=== PATIENT | male | born 1940 | race Caucasian/White ===

== ENCOUNTER 2017-11-10 08:08 | Inpatient (IN) | payer OTHER, BC ==
[2017-10-13 12:44] VITALS: BMI 29.0
--- NOTE | 2017-10-13 13:24 | PAT Medication Instructions ---
Service Date Oct 13, 2017. Current Home Medication List Aspirin (Aspirin Ec), 81 MG PO QPM Coenzyme Q10 (Ubidecarenone) (Coq10), 100 MG PO QPM Hzdoeozhvxl-Cfvabkayupm-Pzd C- (Glucosamine Chondroitin), 1 TAB PO QPM Krill Oil (Krill Oil), 1 TAB PO QPM Lisinopril (Zestril), 10 MG PO QPM Simvastatin (Zocor), 80 MG PO QPM Tamsulosin Hcl (Flomax), 0.4 MG PO QPM Vitamins C & E (Vitamin C), 2 TAB PO QAM Medication Instructions For Your Scheduled Surgery - Hold the following medications 2 weeks prior to surgery: Coenzyme Q10 (Ubidecarenone) (Coq10), 100 MG PO QPM Tuuqctxkdfi-Wkladsleltq-Tvz C- (Glucosamine Chondroitin), 1 TAB PO QPM Krill Oil (Krill Oil), 1 TAB PO QPM - Hold the following medications the night before surgery: Lisinopril (Zestril), 10 MG PO QPM - Hold the following medications the morning of surgery: Vitamins C & E (Vitamin C), 2 TAB PO QAM - Take the following medications as scheduled the night before surgery: Simvastatin (Zocor), 80 MG PO QPM Tamsulosin Hcl (Flomax), 0.4 MG PO QPM Aspirin (Aspirin Ec), 81 MG PO QPM If you have any questions please call us at [phone] or [phone] or [phone]
[2017-10-13 14:15] LABS: BASO % 0.6 %; BASO ABS # 0.03 K/uL (0-0.2); EOS % 3.3 %; EOS ABS # 0.17 K/uL (0-0.5); HEMATOCRIT 40.6 % (42-52); HEMOGLOBIN 14.1 g/dL (14.0-18.0); IG# 0.01 K/uL (0.00-0.02); LYMPH ABS # 1.96 K/uL (1.2-3.4); MEAN CELL VOLUME 93.8 fL (80-100); MEAN CORPUSCULAR HEMOGLOBIN 32.6 pg (25-34); MEAN CORPUSCULAR HGB CONC 34.7 g/dl (32-36); MEAN PLATELET VOLUME 9.8 fL (7.4-10.4); MONO % 10.5 %; MONO ABS # 0.54 K/uL (0.11-0.59); NEUT % 47.4 %; NEUT ABS # 2.45 K/uL (1.4-6.5); PLATELET COUNT 242 K/uL (130-400); RED CELL DISTRIBUTION WIDTH CV 12.5 % (11.5-14.5); WHITE BLOOD COUNT 5.16 K/uL (4.8-10.8)
--- NOTE | 2017-10-13 14:26 | DIAGNOSTIC IMAGING REPORT ---
TWO VIEW CHEST CLINICAL HISTORY: Preoperative examination. FINDINGS: PA and lateral chest radiographs are obtained. No prior studies are available for comparison at the time of dictation. The heart is mildly enlarged. The pulmonary vasculature is noncongested. There is a moderate hiatal hernia. The lungs and pleural spaces are clear. There is no pneumothorax. The skeletal structures are osteopenic. The bony thorax appears intact. IMPRESSION: 1. Mild cardiac enlargement with no active disease in the chest. 2. Hiatal hernia. Electronically signed by: Washignton Abebe M.D. 10/13/2017 2:25 PM Dictated Date/Time: 10/13/2017 2:24 PM
[2017-10-13 14:41] LABS: PTT PATIENT 25.7 SECONDS (21.0-31.0)
--- NOTE | 2017-10-15 10:27 | HISTORY & PHYSICAL EXAMINATION ---
DATE OF ADMISSION: 11/10/2017 CHIEF COMPLAINT: Left knee pain. HISTORY OF PRESENT ILLNESS: Leighton is a 76-year-old male with a multiple year history of left knee pain. The patient rates his pain in 8-9/10. He has pain with his daily activities. He has limited standing and walking tolerance. Pain is worse with weightbearing. The patient has had injections, knee arthroscopy and bracing in the past with minimal relief. He has failed conservative treatment and is now scheduled for left knee replacement. PAST MEDICAL HISTORY: Diet controlled diabetes with an A1c of 6.2. He denies heart disease or DVT. PAST SURGICAL HISTORY: ORIF left ankle, bilateral knee arthroscopy, hiatal hernia repair, left rotator cuff repair, left fourth finger amputation and dental implants. SOCIAL HISTORY: The patient denies tobacco use. He drinks alcohol socially. He does lives in a 2-story home but is functional at one level. He is and retired. FAMILY HISTORY: Negative for DVT. MEDICATIONS: Simvastatin 20 mg, lisinopril, tamsulosin 0.4 mg, CoQ10, Krill oil, glucosamine chondroitin and aspirin 81 mg. ALLERGIES: None. REVIEW OF SYSTEMS: See HPI. Ten other systems reviewed, all negative. PHYSICAL EXAMINATION: VITAL SIGNS: Height 5 foot 11 inches, weight 209 pounds, BMI is 29. GENERAL: This is a well-developed, well-nourished male who is alert and oriented x3. Mood and affect are appropriate. HEENT: Normocephalic, atraumatic. Mucous membranes are moist and intact. NECK: Supple without lymphadenopathy. HEART: Regular rate and rhythm without murmurs, rubs or gallops. LUNGS: Clear to auscultation without wheezes or rhonchi. ABDOMEN: Soft and nontender. Bowel sounds are equal and active. EXTREMITIES: No ecchymosis, redness or warmth. He has neutral alignment. Range of motion is from 0-115 degrees. He has no laxity. He is neurovascularly intact. He has minimal effusion. He has no distal edema. X-RAY EXAMINATION: AP and lateral views showed joint space narrowing and osteophyte formation. IMPRESSION: Degenerative joint disease, left knee. PLAN: The patient will be admitted for a left total knee arthroplasty. We will plan on aspirin for DVT prophylaxis. The patient is going to do outpatient PT upon discharge. His PCP is Dr. Condon of [facility].
[~2017-11-10] VITALS: Ht 180.3 cm; Wt 95.0 kg
[2017-11-10] VITALS (10 sets, daily range): BP systolic 113–164; BP diastolic 63–84; PULSE 48–61; TEMP 36.3–36.5; O2SAT 95–98; Ht 180.3 cm; Wt 95.0 kg
[~2017-11-10 08:08] MED LIST: ACETAMINOPHEN 500 MG TAB PO SCH; ASPI81TA28 PO; ATROPINE SULFATE 0.1 MG/ML 5ML SYR IV PRN; BUPIVACAINE 0.25% 30 ML VIAL ONE; BUPIVACAINE 0.5 % 5 MG/1 ML PF 10ML VIAL ONE; CEFAZOLIN 2000MG IV PUSH 10 ML IV SCH; COEN100C7 PO; CeleBREX 200 MG CAP PO SCH; DEXAMETHASONE 4 MG TAB PO SCH; EpHEDrine SULFATE INJ 50 MG/ML AMP IV PRN; FAMOTIDINE 20 MG TAB PO SCH; GABAPENTIN 300 MG CAP PO SCH; GLUCTAB7 PO; KRIL1000 PO; LACTATED RINGER'S 1000ML 1,000 ML IV SCH; LACTATED RINGER'S 1000ML 500 ML IV SCH; LISI-461 PO; METOCLOPRAMIDE HCL 10 MG TAB PO SCH; ONDANSETRON INJ 2 MG/ML 2 ML VIAL IV PRN; ROPIVACAINE 5MG/ML 30 ML 150 MG, BUPIVACAINE 0.5% MPF INJ 30 ML, EpINEphrine HCL INJ 0.... INFIL SCH; SIMV80TA2 PO; TAMS0.4C38 PO; VITACAP26 PO
--- NOTE | 2017-11-10 08:24 | History & Physical Bridge Note ---
H&P Re-Evaluation Bridge Note: I have examined the patient, reviewed the History & Physical and in the interval since the performance of the History & Physical I have noted the following changes of clinical significance: No changes noted
[2017-11-10] MEDS ORDERED: EpHEDrine SULFATE 50MG/5ML SYR ONE (09:00)
[2017-11-10] MEDS ORDERED: MIDAZOLAM HCL 1 MG/ML 2ML VIAL ONE (09:00)
[2017-11-10] MEDS ORDERED: FENTANYL CITRATE INJ 50 MCG/1 ML 2 ML VIAL ONE (09:00)
[2017-11-10] MEDS ORDERED: LIDOCAINE HCL 2% 2 ML VIAL (20MG/ML) ONE (09:00)
[2017-11-10] MEDS ORDERED: PHENYLEPHRINE 100MCG/ML 5ML SYR ONE (09:00)
[2017-11-10] MEDS ORDERED: PROPOFOL IV EMULSION 10 MG/ML 20 ML VIAL IV ONE ×2 (09:00→10:01)
[2017-11-10] MEDS ORDERED: BACITRACIN 50000 UNIT VIAL ONE (09:51)
[2017-11-10] MEDS ORDERED: POVIDONE-IODINE OP SOLN 30 ML BTL ONE (09:51)
[2017-11-10] MEDS: TRANEXAMIC ACID INJ 1,000 MG in SYRINGE 0 ML IV SCH ×2 (10:55→17:17)
--- NOTE | 2017-11-10 12:06 | [facility] Operative Report ---
Operative Report Operative Date Nov 10, 2017. Pre-Operative Diagnosis Left Knee Degenerative Joint Disease Post-Operative Diagnosis Left Knee Degenerative Joint Disease Procedure(s) Performed Left Total Knee Arthroplasty utilizing Alford & Nephew patient-matched left total knee arthroplasty size 7 femur 7 tibia [address] Shiloh [address] [facility] Worker Surgeon(s) ANGE Delvalle Estimated Blood Loss 5 ML Findings Patient presents with severe end-stage Tri-Chlor metal degenerative joint disease left knee after failing attempts at conservative management the patient presents for left total knee arthroplasty failing a viscus of cortical steroid injections anti-inflammatories relative rest x-rays reveal evidence of osteophyte subchondral sclerosis [id number] changes marginal osteophytes Specimens A. Left Knee Bone and Tissue Complication(s) None Disposition Surgical ICU Indications Patient presents with severe end-stage tricompartmental degenerative joint disease Nourse wants to conservative therapy including injections therapy activity modification excision subchondral sclerosis osteophytes varus alignment [id number] changes Description of Procedure After proper prepping and draping of the left lower extremity anterior midline incision was made over the region of the extensor extensor mechanism after meticulous hemostasis was obtained and maintained in subcutaneous tissues a medial parapatellar incision was made The patella was subluxed lateralward the medial lateral gutter were cleaned from any hypertrophic synovitis and scar tissue of the distal femoral block was placed and the distal femoral osteotomy cut was made subsequently the chamfers anterior and posterior osteotomy cuts were made utilizing the 4-in-1 block the tibia was subsequently subluxed anteriorward medial and ateral meniscal remnants were excised in their entirety remnants of the anterior and posterior cruciate ligaments were excised in their entirety excellent exposure of the proximal tibia was obtained the tibial osteotomy guide was placed on the proximal tibial osteotomy cut was made once again the knee was irrigated with copious amounts of sterile saline solution the patella was subsequently everted lateralward thickened scar tissue around the patella was removed the patella was subsequently cut utilizing a freehand technique and was drilled prepared for final preparation and placement of patella socially flexion-extension gaps were checked and the equal and symmetric trials were placed to the appropriate femoral and tibial trials with poly-spacer being placed for equal flexion and extension gaps and full range of motion including extension to 0 and flexion to 140 the trial components after having been taken to recovery range of motion was subsequently removed meticulous hemostasis was obtained and maintained subsequently a knee block injection of joint cocktail including ropivacaine 0.5% 150 mg. Bupivacaine 0.5 % epinephrine 1-200,030 mL's toradol 30 mg dexamethasone 4 mg ketamine 10 mg clonidine 100 micrograms normal saline solution 30 mg was infiltrated into the soft tissues of the posterior knee medial lateral gutters and periosteal synovium special attention was paid to protect neurovascular structures at all times subsequently trial components having been removed the knee was irrigated with sterile saline solution. debris was removed the proximal tibia was subsequently prepared and was made ready for the placement of the tibial component tibial component was also cemented and tamped into position the femoral component was subsequently placed and cemented in the position the patellar component was subsequently cemented in position because hemostasis once again obtained and maintained wound having been thoroughly irrigated with debridement and debridement lavage was performed as well as a medial parapatellar incision closed with #1 Vicryl in interrupted fashion subcutaneous was closed with #2 Vicryl skin was closed with skin clips. PA-C was necessary for prepping and drapping as well as wound closure of deep fascia Sub cutaneous tissue and skin and was necessary for the case. A sterile compressive dressing was placed patient was taken to recovery in stable condition of report dictated by Johnnie I attest to the content of the Intraoperative Record and any orders documented therein. Any exceptions are noted below. I attest to the content of the Intraoperative Record and any orders documented therein. Any exceptions are noted below.
[2017-11-10] MEDS ORDERED: ONDANSETRON INJ 2 MG/ML 2 ML VIAL IV PRN (13:00)
[2017-11-10] MEDS ORDERED: MoRPHine SULFATE 4 MG/ML 1 ML CARP\\VIAL IV PRN (13:00)
[2017-11-10] MEDS ORDERED: MoRPHine SULFATE 2 MG/ML CARP IV PRN (13:00)
[2017-11-10] MEDS ORDERED: ALUMINUM/MAGNESIUM/SIMETH (MAALOX MAX) 30 ML UDC PO PRN (13:00)
[2017-11-10] MEDS ORDERED: TRAMADOL HCL 50 MG TAB PO PRN (13:00)
[2017-11-10] MEDS ORDERED: OXYCODONE HCL IR 5 MG TAB (IMMEDIATE RELEASE) PO PRN (13:00)
[2017-11-10] MEDS ORDERED: MAGNESIUM HYDROXIDE SUSP 30 ML UDC PO PRN (13:00)
[2017-11-10] MEDS ORDERED: CEFAZOLIN IV 2,000 MG in DEXTROSE 5% 50ML 50 ML IV SCH (13:00)
--- NOTE | 2017-11-10 13:10 | DIAGNOSTIC IMAGING REPORT ---
LEFT KNEE 2 VIEWS History: Left total knee arthroplasty. Degenerative arthritis. Postop. FINDINGS: The patient is status post a left total knee arthroplasty. The hardware is intact. No fracture or dislocation. Surgical drains are in place. IMPRESSION: Left total knee arthroplasty. No evidence for hardware complication. Electronically signed by: Killian Anderson M.D. 11/10/2017 1:09 PM Dictated Date/Time: 11/10/2017 1:08 PM
--- NOTE | 2017-11-10 13:27 | Anesthesiology Progress Note ---
Anesthesia Post Op Note Date & Time Nov 10, 2017 at 13:27 Vital Signs Pain Intensity: 0 Vital Signs Past 12 Hours Date Time Temp Pulse Resp B/P (MAP) Pulse Ox O2 Delivery O2 Flow Rate FiO2 11/10/17 13:15 46 16 120/64 98 Nasal Cannula 2 Mask 11/10/17 13:05 53 12 118/69 97 Nasal Cannula 2 Mask 11/10/17 12:55 58 16 113/64 97 Mask 8 11/10/17 12:48 36.5 59 16 108/58 97 Mask 8 11/10/17 08:32 36.4 61 18 157/84 97 Room Air Notes Mental Status: alert / awake / arousable, participated in evaluation Pt Amnestic to Procedure: Yes Nausea / Vomiting: adequately controlled Pain: adequately controlled Airway Patency, RR, SpO2: stable & adequate BP & HR: stable & adequate Hydration State: stable & adequate Neuraxial Anesthesia: was administered, sensory block is resolving Anesthetic Complications: no major complications apparent
[2017-11-10] MEDS ORDERED: INFLUENZA VIRUS QUAD VACCINE 0.5 ML SYR IM. ONE (15:00)
[2017-11-10] MEDS ORDERED: INFLUENZA ADMINISTRATION CHARGE ONE (15:00)
[2017-11-10] MEDS ORDERED: INFLUENZA VACCINE HIGH DOSE 65+ 0.5 ML SYR IM. ONE (15:00)
[2017-11-10] MEDS: SODIUM CHLORIDE 0.9% 1000ML 1,000 ML IV SCH (17:17)
[2017-11-10] MEDS: FERROUS GLUCONATE 324 MG TAB PO SCH (18:20)
[2017-11-10] MEDS: CEFAZOLIN IV 2,000 MG in SYRINGE 0 ML IV SCH (20:29)
[2017-11-10] MEDS: DOCUSATE SODIUM 100 MG CAP PO SCH (20:37)
[2017-11-10] MEDS: SENNA 8.6 MG TAB PO SCH (20:37)
[2017-11-10] MEDS: TAMSULOSIN HCL 0.4 MG CAP PO SCH (20:37)
[2017-11-10] MEDS: LISINOPRIL 10 MG TAB PO SCH (20:38)
[2017-11-10] MEDS: ASPIRIN 81 MG ECTAB PO SCH (20:38)
[2017-11-10] MEDS: SIMVASTATIN 80 MG TAB PO SCH (20:38)
[2017-11-10] MEDS: CeleBREX 200 MG CAP PO SCH (20:39)
[2017-11-10] MEDS: ACETAMINOPHEN 500 MG TAB PO SCH (21:56)
[2017-11-11] VITALS (7 sets, daily range): BP systolic 112–148; BP diastolic 56–68; PULSE 50–64; TEMP 36.3–36.5; O2SAT 97–98
[2017-11-11] MEDS: SODIUM CHLORIDE 0.9% 1000ML 1,000 ML IV SCH ×2 (01:29→11:21)
[2017-11-11] MEDS: CEFAZOLIN IV 2,000 MG in SYRINGE 0 ML IV SCH (03:56)
[2017-11-11] MEDS: ACETAMINOPHEN 500 MG TAB PO SCH ×3 (05:50→22:17)
--- NOTE | 2017-11-11 07:23 | Orthopedic Progress Note ---
Orthopedic Progress Note Date of Service Nov 11, 2017. Subjective Post OP Day: 1 Reports: feeling well, pain controlled w PO medications, Denies: complaints, chest pain, SOB, nausea / vomiting, light headedness, calf pain Additional Notes: noticed some "pins and needles" sensation in his left leg, I loosened his antonio wrap today and he states this has improved. Objective calves soft nontender, N/V intact, capillary refill less than 2 sec., dressing C /D/I, A&O x3, toes mobile, hemovac drainage (150cc/8 hours) Date Time Temp Pulse Resp B/P (MAP) Pulse Ox O2 Delivery O2 Flow Rate FiO2 11/11/17 03:56 36.4 56 18 112/61 (78) 97 Room Air 11/10/17 23:30 36.5 53 18 121/68 (85) 97 Room Air 11/10/17 23:30 Room Air 11/10/17 22:00 52 147/81 (103) 11/10/17 20:35 54 164/80 (108) 11/10/17 18:30 98 Room Air 11/10/17 16:46 36.3 54 19 118/67 (84) 98 Nasal Cannula 2.0 11/10/17 15:44 36.4 48 17 128/74 (92) 97 Nasal Cannula 2.0 11/10/17 14:40 36.4 54 16 113/68 (83) 98 Nasal Cannula 2.0 11/10/17 14:10 36.4 58 16 122/76 (91) 96 Nasal Cannula 2.0 11/10/17 13:45 Nasal Cannula 2.0 11/10/17 13:45 Nasal Cannula 2.0 11/10/17 13:40 36.5 48 18 127/63 (84) 95 Nasal Cannula 2.0 11/10/17 13:25 36.3 49 13 115/67 99 Nasal Cannula 2 Mask 11/10/17 13:15 46 16 120/64 98 Nasal Cannula 2 Mask 11/10/17 13:05 53 12 118/69 97 Nasal Cannula 2 Mask 11/10/17 12:55 58 16 113/64 97 Mask 8 11/10/17 12:48 36.5 59 16 108/58 97 Mask 8 11/10/17 08:32 36.4 61 18 157/84 97 Room Air Laboratory Results 24 Hours: Test 11/11/17 04:44 Assessment & Plan Assessment: POD #1 s/p Left TKA -pt/ot -dvt proph with iker/scd/asa -plan for d/c home with OPPT when stable, will recheck later today -labs pending Discharge Planning Discharge Planning: home with oppt DVT Prophylaxis: TEDs, SCDs, ASA Therapy: Physical Therapy
--- NOTE | 2017-11-11 07:24 | Discharge Instructions ---
Discharge Instructions Date of Service Nov 11, 2017. Admission Reason for Admission: Left Knee Osteoarthritis Discharge Discharge Diagnosis / Problem: Left Total Knee Replacement Discharge Goals Goal(s): Decrease discomfort, Improve function, Increase independence Activity Recommendations Activity Limitations: as noted below Weightbearing Status: Left weightbearing (as tolerated) . Instructions / Follow-Up Instructions / Follow-Up ACTIVITY RECOMMENDATIONS: SELF CARE INSTRUCTIONS AFTER TOTAL KNEE REPLACEMENT A. You may need to continue a physical therapy program after discharge from the hospital. There are several options available to you. Your doctor will assist you in selecting the best one for you. 1. An out-patient facility 2 to 3 times a week for therapy or home therapy. 2. Continue working on all exercises taught to you in the hospital. Your goals should be to increase bending of your knee to 90 degrees and beyond and to fully straighten your knee. B. You may progress at your own pace from walking with a walker or crutches to a cane; then to no assistive devices. C. Make walking a part of your daily routine. Be up as much as comfortable with rest periods throughout the day. Rest with leg elevation is very important. Use the ice wrap frequently for the first 3-4 weeks. D. There are no restrictions on activities. You may ride in a car, shop, participate in music professor and all social activities. E. Wear the long elastic stockings (LUIS hose) 20 hours a day for 2 weeks after surgery. They can be removed several times a day for laundering and for a bath. F. You may shower, no tub baths until cleared by your doctor. SPECIAL CARE INSTRUCTIONS: VERY IMPORTANT TO READ AND REVIEW A. There are a few signs you need to watch for after you are home. Call [facility] if you notice any of the followin. Increased severe knee pain. Some pain is expected especially when you exercise. 2. Increased swelling in your leg or knee; pain or swelling of the calf muscle in either lower leg. 3. Any fluid drainage from the incision. 4. Shortness of breath or chest pain. B. Please call [facility] at if you have any concerns or questions about your operation or recovery. The doctor or his nurse will return your call promptly. C. You must take antibiotics before dental work, bladder, bowel or other surgery. Your doctor will provide you with a permanent care to carry describing this precaution. IMPORTANT: * REMEMBER TO TAKE ASPIRIN, 81 MG, TWICE DAILY FOR 4 WEEKS UNLESS OTHERWISE DIRECTED. THIS IS YOUR BLOOD THINNER. * HIGH RISK PATIENTS MAY BE PRESCRIBED A STRONGER BLOOD THINNER. THIS WILL BE PROVIDED AT DISCHARGE. * CALL IF INCREASED PAIN, REDNESS, DRAINAGE OR FEVER GREATER THAT 101. * WEAR LUIS HOSE 20 HOURS PER DAY FOR 2 WEEKS. * YOU MAY HAVE A LARGE BAND-AID LIKE DRESSING (SILVERON). THIS WILL REMAIN ON YOUR INCISION FOR 7 DAYS, THEN CAN BE REMOVED. IF INCISION IS LEAKING THROUGH DRESSING, CALL THE OFFICE . DERMABOND Prineo- This is a mesh tape dressing that is covered with glue. It should remain in place until the incision is properly healed, usually 10-14 days. This dressing is designed to naturally slough off. You may trim the excess mesh tape as it peels off. Incision may be briefly wet in a shower. Dry immediately by blotting with a clean, dry towel. Do not bath or swim until instructed by your doctor. Do not scratch, rub, or pick at the dressing. Do not apply any topical ointments or lotions until dressing is completely removed and/or instructed by your doctor. There may be a small piece of suture material at one end of your incision. Do not pull or trim this. If it is bothersome or catching on clothing, you may cover it with a band-aid. FOLLOW UP VISIT: If appointment is not already scheduled: Please call [facility] to make a follow-up appointment for 2 weeks after your surgery at . Current Hospital Diet Patient's current hospital diet: Diabetes Type 2 Diet Discharge Diet Recommended Diet: Diabetes Type 2 Diet Procedures Procedures Performed: Left Total Knee Arthroplasty utilizing Alford & Nephew patient-matched left total knee arthroplasty size 7 femur 7 tibia 10 Shiloh 35 oval patella Pending Studies Studies pending at discharge: no Medical Emergencies . Who to Call and When: Medical Emergencies: If at any time you feel your situation is an emergency, please call 911 immediately. . Non-Emergent Contact Non-Emergency issues call your: Primary Care Provider, Surgeon . "Provider Documentation" section prepared by Radhames Beckwith. . VTE Core Measure Inpt VTE Proph given/why not?: Other Anticoagulation (ASA 81mg po bid x 1 month ), T.E.D. Stockings, SCD's [place] Drug Monitoring Program Search Results: patient reviewed within database, no issues identified
[2017-11-11] MEDS ORDERED: CLB200 PO (07:53)
[2017-11-11] MEDS ORDERED: CLC100 PO (07:53)
[2017-11-11] MEDS ORDERED: ASPEC81 PO (07:53)
[2017-11-11] MEDS ORDERED: RXC5 PO (07:53)
[2017-11-11] MEDS ORDERED: ONDA8TAB6 PO (07:53)
[2017-11-11] MEDS ORDERED: ULT50X PO (07:53)
[2017-11-11] MEDS ORDERED: ACET-24 PO (07:53)
[2017-11-11 08:02] LABS: HEMATOCRIT 34.8 % (42-52); HEMOGLOBIN 12.4 g/dL (14.0-18.0); MEAN CELL VOLUME 91.6 fL (80-100); MEAN CORPUSCULAR HEMOGLOBIN 32.6 pg (25-34); MEAN CORPUSCULAR HGB CONC 35.6 g/dl (32-36); MEAN PLATELET VOLUME 9.8 fL (7.4-10.4); PLATELET COUNT 213 K/uL (130-400); RED CELL DISTRIBUTION WIDTH SD 40.2 fL (36.4-46.3); WHITE BLOOD COUNT 16.74 K/uL (4.8-10.8)
[2017-11-11 08:30] LABS: CALCIUM 8.5 mg/dl (8.5-10.1); CREATININE 1.1 mg/dl (0.60-1.40); POTASSIUM 4.5 mmol/L (3.5-5.1)
[2017-11-11] MEDS: CeleBREX 200 MG CAP PO SCH ×2 (08:50→22:17)
[2017-11-11] MEDS: ASPIRIN 81 MG ECTAB PO SCH ×2 (08:50→22:17)
[2017-11-11] MEDS: FERROUS GLUCONATE 324 MG TAB PO SCH ×3 (08:50→17:38)
[2017-11-11] MEDS: DOCUSATE SODIUM 100 MG CAP PO SCH ×2 (08:50→22:17)
[2017-11-11] MEDS: MULTIVITAMIN TAB PO SCH (08:51)
--- NOTE | 2017-11-11 08:55 | Anesthesiology Progress Note ---
Anesthesia Post Op Note Date & Time Nov 11, 2017 at 08:54 Vital Signs Pain Intensity: 0.0 Vital Signs Past 12 Hours Date Time Temp Pulse Resp B/P (MAP) Pulse Ox O2 Delivery O2 Flow Rate FiO2 11/11/17 07:53 97 Room Air 11/11/17 07:38 36.3 60 18 116/56 (76) 97 Room Air 11/11/17 07:20 Room Air 11/11/17 03:56 36.4 56 18 112/61 (78) 97 Room Air 11/10/17 23:30 36.5 53 18 121/68 (85) 97 Room Air 11/10/17 23:30 Room Air 11/10/17 22:00 52 147/81 (103) Notes Mental Status: alert / awake / arousable, participated in evaluation Pt Amnestic to Procedure: Yes Nausea / Vomiting: adequately controlled Pain: adequately controlled Airway Patency, RR, SpO2: stable & adequate BP & HR: stable & adequate Hydration State: stable & adequate Neuraxial Anesthesia: sensory block resolved Anesthetic Complications: no major complications apparent
[2017-11-11] MEDS: SENNA 8.6 MG TAB PO SCH (22:16)
[2017-11-11] MEDS: LISINOPRIL 10 MG TAB PO SCH (22:16)
[2017-11-11] MEDS: SIMVASTATIN 80 MG TAB PO SCH (22:16)
[2017-11-11] MEDS: TAMSULOSIN HCL 0.4 MG CAP PO SCH (22:17)
[2017-11-12 05:15] VITALS: BP 133/78; PULSE 58
[2017-11-12] MEDS: ACETAMINOPHEN 500 MG TAB PO SCH (05:19)
[2017-11-12 06:25] VITALS: BP 132/72; PULSE 54; TEMP 36.6; O2SAT 97
--- NOTE | 2017-11-12 07:10 | Orthopedic Progress Note ---
Orthopedic Progress Note Date of Service Nov 12, 2017. Subjective Post OP Day: 2 Reports: feeling well, pain controlled w PO medications, Denies: complaints, chest pain, SOB, nausea / vomiting, light headedness, calf pain Objective calves soft nontender, N/V intact, capillary refill less than 2 sec., incision C /D/I, A&O x3, toes mobile Date Time Temp Pulse Resp B/P (MAP) Pulse Ox O2 Delivery O2 Flow Rate FiO2 11/12/17 06:25 36.6 54 17 132/72 (92) 97 Room Air 11/12/17 05:15 58 133/78 (96) 11/11/17 22:51 36.5 50 15 116/63 (80) 97 Room Air 11/11/17 22:50 Room Air 11/11/17 22:15 54 121/66 (84) 11/11/17 16:05 Room Air 11/11/17 15:00 36.5 64 18 148/68 (94) 98 Room Air 11/11/17 11:32 36.3 60 18 124/60 (81) 97 Room Air 11/11/17 07:53 97 Room Air 11/11/17 07:38 36.3 60 18 116/56 (76) 97 Room Air 11/11/17 07:20 Room Air Laboratory Results 24 Hours: Test 11/11/17 07:44 Hematocrit 34.8 % Hemoglobin 12.4 g/dL Assessment & Plan Assessment: POD #2 s/p Left TKA -pt/ot -dvt proph with iker/scd/asa -plan for d/c home with OPPT when stable, likely after PT today Discharge Planning Discharge Planning: home with oppt DVT Prophylaxis: TEDs, SCDs, ASA Therapy: Physical Therapy
[2017-11-12 09:23] VITALS: BP 130/67
[2017-11-12] MEDS: FERROUS GLUCONATE 324 MG TAB PO SCH (09:36)
[2017-11-12] MEDS: DOCUSATE SODIUM 100 MG CAP PO SCH (09:37)
[2017-11-12] MEDS: CeleBREX 200 MG CAP PO SCH (09:37)
[2017-11-12] MEDS: ASPIRIN 81 MG ECTAB PO SCH (09:37)
[2017-11-12] MEDS: MULTIVITAMIN TAB PO SCH (09:38)
[2017-11-12 09:50] VITALS: BP 132/72; PULSE 54; TEMP 36.6; O2SAT 97
== END 2017-11-12 11:00 | disposition home or self-care (01) | DRG 470 ==
LOC: C.ACU 08:08 → C.3E 08:20 → ENRESERV 13:07
PROVIDERS: ADMIT Orthopaedic Surgery; ATTEND Orthopaedic Surgery
PROC: 0SRD0J9 Replacement of Left Knee Joint with Synthetic Substitute, Cemented, Open Approach (ICD-10-PCS; principal; 2017-11-10 11:00)
DX: M17.12 Unilateral primary osteoarthritis, left knee (principal); I10 Essential (primary) hypertension; E11.9 Type 2 diabetes mellitus without complications; E78.5 Hyperlipidemia, unspecified; N40.0 Benign prostatic hyperplasia without lower urinary tract symptoms; Z23 Encounter for immunization; Z79.82 Long term (current) use of aspirin; Z79.899 Other long term (current) drug therapy